=== PATIENT | male | born 1940 | race Caucasian/White ===

== ENCOUNTER 2021-06-07 20:50 | Inpatient (IN) | payer MEDICARE ==
[~2021-06-07] VITALS: Ht 167.6 cm; Wt 67.7 kg
[2021-06-07] MEDS ORDERED: MORPHINE 10 MG/ML 1ML VIAL (J2270) IM ONE (21:40)
[2021-06-07] MEDS ORDERED: BENZONATATE 100MG CAPSULE PO ONE (22:10)
[2021-06-07 22:35] LABS: RSV AMPLIFICATION NEGATIVE (NEGATIVE)
[2021-06-07] MEDS ORDERED: LORazepam 2 MG/ML VIAL IV PRN (23:30)
[2021-06-07] MEDS ORDERED: ATROPINE SULFATE 1% OP SOLN 2 ML BTL SL PRN (23:30)
[2021-06-07] MEDS ORDERED: ONDANSETRON 4MG/2ML VIAL IV PRN (23:30)
[2021-06-07] MEDS ORDERED: BISACODYL 10 MG SUPP PR PRN (23:30)
[2021-06-07] MEDS ORDERED: ONDANSETRON 4 MG ORAL DISINTEGRATING TAB PO PRN (23:30)
[2021-06-07] MEDS ORDERED: ACETAMINOPHEN 650 MG SUPP PR PRN (23:30)
[2021-06-07] MEDS ORDERED: ACETAMINOPHEN TAB 650MG DOSE (2X325MG) PO PRN (23:30)
[2021-06-07] MEDS ORDERED: SCOPOLAMINE 1MG TRANSDERMAL PATCH TOP PRN (23:30)
[2021-06-07] MEDS ORDERED: MORPHINE 2 MG/ML 1ML VIAL (J2270) IV ONE (23:45)
[2021-06-07] MEDS ORDERED: IPRATROPIUM 0.5MG/ALBUTEROL 2.5MG INH SOL UD 3ML (DUONEB) NEB PRN (23:45)
[2021-06-07] MEDS ORDERED: ALBUTEROL SULFATE 2.5 MG/0.5 ML INH NEB SOLN NEB ONE (23:45)
[2021-06-08 00:15] VITALS: BP 132/56
--- NOTE | 2021-06-08 00:30 | HPEPDOC ---
General Date of Admission Jun 07, 2021 at 20:51 Date of Service: Jun 08, 2021 Chief Complaint The patient is a 80-year-old male admitted with a reason for visit of Comfort Measures Only Status, Lung Cancer. Source: Patient Exam Limitations: Clinical conditions History of Present Illness Joaquin Abdalla is a 80-year-old male with significant history CAD, small cell lung cancer, history of GI bleed, and hypertension who presents today with shortness of breath and interest in comfort measures/hospice. Patient seen at bedside and unfortunately in moderate distress describing some chest tightness and "I cannot breathe". He confirms that he is DNR/DNI and interested in breathing treatment and medicines to make him more comfortable. His dyspnea limited HPI and RT was called for breathing treatment and 1 mg morphine IV for air hunger. Patient with improved symptoms after treatment and transferred to the [place] emergency department for further symptom management and to address hospice interest. Patient seen at bedside again with improvement in his dyspnea. He is sitting up in chair with 2 L nasal cannula. He appears unlabored but does grimace with movement of his chest. Patient reports that he is having some moderate pleuritic type chest pain. Endorses soreness with touch to the chest. Patient reports that he is a former smoker and in the past 3 months had some constitutional changes reports losing 30 pounds in 4 weeks and also having some dyspnea on exertion. Patient reports he typically does not have oxygen or inhalers at home. He is in the process from moving from [place] as he s originally from [place]. Patient actually endorses he has been driving back from [place] to include [address]. 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 Patient reports that he was in the process of moving home to be comfortable/obtain house for his when he had an increase in symptoms today. He reports "do not want to be in pain anymore". Patient reports that his doctor gave him "6 weeks to a month as it is very aggressive". MOLST form on chart to confirm DNR/DNI. Patient reports that he has and his is supportive of his choices. He is interested in hospice and does outline he "only wants medication to be comfortable". Home Medications Unable to Obtain Active Prescriptions or Reported Meds Allergies Coded Allergies: No Known Allergies (Verified , 11/16/03) Past Medical History Medical History CAD, small cell lung cancer, history of GI bleed, hypertension, former smoker Surgical History Quadruple bypass, carpal tunnel release 1980, remote herniorrhaphy 1955 Family History Significant Family History: Heart disease Fatherdied at 79 due to open heart surgery, motherdied of old age at 83, brothercardiac stents, no reported health concerns of two children Social History * Smoker: former Smoker Alcohol: Denies Drugs: denies Recent Travel/Sick Contacts: Denies: Recent travel, Recent sick contacts Psychosocial History: No pertinent psych hx A-FIB/CHADSVASC A-FIB History Current/History of A-Fib/PAF?: No Current PO Anticoag Therapy: No Review of Systems Constitutional: Denies: Chills, Fever, Night Sweats Eyes: Denies: Pain, Vision change ENT: Denies: Head Aches, Ear Pain, Dysphagia Skin: Denies: Rash, Lesions, Breakdown Pulmonary: Reports: Dyspnea, Cough, Pleuritic Chest Pain Cardiovascular: Denies: Chest Pain, Palpitations, Orthopnea, Paroxysmal Noc. Dyspnea, Lt Headedness Gastrointestinal: Denies: Nausea, Vomiting, Abdominal Pain, Diarrhea Genitourinary: Denies: Dysuria, Frequency, Incontinence, Retention Hematologic: Denies: Bruising, Bleeding Excessively Musculoskeletal: Denies: Neck Pain, Back Pain, Joint Pain, Muscle Pain, Spasms Neurological: Denies: Weakness, Numbness, Change in speech, Confusion Psych: Reports: Mood Normal; Denies: Depression, Memory Issues Physical Examination General Exam: Positive: Alert, Cooperative, Moderate Distress; Negative: No Acute Distress Eye Exam: Positive: PERRLA, Conjunctiva & lids normal, EOMI; Negative: Sclera icteric ENT Exam: Positive: Atraumatic, Mucous membr. moist/pink, Pharynx Normal Neck Exam: Positive: Supple; Negative: JVD, thyromegaly Chest Exam: Positive: Wheezing, Diminished; Negative: Clear to auscultation, Normal air movement Heart Exam: Positive: Tachycardic, Regular Rhythm, Normal S1, Normal S2; Negative: Rate Normal, Murmurs, Rubs Telemetry: Positive: Sinus, Tachycardia Abdomen Exam: Positive: Normal bowel sounds, Soft; Negative: Tenderness, Hepatospenomegaly Extremity Exam: Positive: Normal pulses; Negative: Clubbing, Cyanosis, Edema Skin Exam: Positive: Nl turgor and temperature; Negative: Breakdown, Lesion Neuro Exam: Positive: Normal Gait, Normal Speech, Cranial Nerves 3-12 NL, Reflexes 2+ Psych Exam: Positive: Mental status NL, Anxiety, Oriented x 3; Negative: Mood NL Vital Signs Vital Signs Date Time Temp Pulse Resp B/P (MAP) Pulse Ox O2 Delivery O2 Flow Rate FiO2 06/08/21 00:06 22 06/07/21 22:16 95 Room Air 06/07/21 21:11 96.7 88 125/85 (98) Laboratory Data Labs 24H Laboratory Tests 2 06/07/21 21:43: Coronavirus (COVID-19)(PCR) NEGATIVE, Influenza Type A (RT-PCR) NEGATIVE, Influenza Type B (RT-PCR) NEGATIVE, Respiratory Syncytial Virus (PCR) NEGATIVE Assessment/Plan CLUB ATTENDANT status: Pt verbalizes interest in no further medical treatment. Wishes to proceed with comfort management interventions only. Interested in hospice. Patient reports that he does not take any pain medication on a regular basis as this has been a recent less than 4 months experience/escalation symptoms for him and thus, opiate crescencio. -Obtain healthcare records from [place] -Plan for CLUB ATTENDANT protocol - morphine, ativan, scopolamine patch prn. -Given patient pleuritic chest pain will trial Toradol for likely costochondritis and probable referred pain; consider fentanyl patch or extended release options pending patient response/amount of immediate release utilized. -Oxygen and breathing treatments as needed for comfort. -Appreciate CM for hospice consult. CODE: DNR/DNI confirmed, MOLST on profile Dispo: Likely will benefit from home hospice Plan / VTE VTE Prophylaxis Ordered?: No (CLUB ATTENDANT) GRANT GARVEY NP Jun 08, 2021 00:12
[2021-06-08] MEDS: LORazepam 1 MG TAB PO PRN ×8 (00:37→23:42)
[2021-06-08] MEDS: MORPHINE 2 MG/ML 1ML VIAL (J2270) IV PRN ×2 (00:38→06:44)
[2021-06-08] MEDS ORDERED: KETOROLAC 30 MG/ML 1ML VIAL IV PRN (01:35)
[2021-06-08] MEDS: MORPHINE 10MG/0.5ML ORAL CONCENTRATE SOLUTION U/D SL PRN ×7 (01:47→23:43)
[2021-06-08] MEDS ORDERED: MORPHINE 15 MG SA TAB PO SCH (09:00)
[2021-06-08] MEDS: SENOKOT S TAB PO SCH ×2 (09:01→20:33)
--- NOTE | 2021-06-08 14:02 | IPNPDOC ---
Subjective Date Seen The patient was seen on 06/08/21. Subjective Chief Complaint/HPI Patient continues to complain of severe left-sided chest pain worse when he is breathing or coughing. He has a Chemo-Port in place. He did say that he had 1 cycle of chemo last week but has decided not to do any further treatment. Objective Physical Examination General Exam: Positive: Alert, Cooperative; Negative: No Acute Distress Eye Exam: Positive: PERRLA, Conjunctiva & lids normal, EOMI; Negative: Sclera icteric ENT Exam: Positive: Atraumatic, Mucous membr. moist/pink, Pharynx Normal Neck Exam: Positive: Supple; Negative: JVD, thyromegaly Chest Exam: Positive: Wheezing, Diminished; Negative: Clear to auscultation, Normal air movement Heart Exam: Positive: Rate Normal, Regular Rhythm, Normal S1, Normal S2; Negative: Murmurs, Rubs Abdomen Exam: Positive: Normal bowel sounds, Soft; Negative: Tenderness Extremity Exam: Negative: Clubbing, Cyanosis, Edema Skin Exam: Positive: Nl turgor and temperature; Negative: Breakdown, Lesion Neuro Exam: Positive: Normal Gait, Normal Speech, Cranial Nerves 3-12 NL, Reflexes 2+ Psych Exam: Positive: Anxiety, Memory Intact, Oriented x 3 Assessment /Plan Assessment 80-year-old male with significant history CAD, metastatic small cell lung c ancer, history of GI bleed, and hypertension presented to the ED for shortness of breath and interested in comfort measures/hospice. Patient is from [place] but has been in [place] for the past several years. His constitutional symptoms of weight loss, dyspnea on exertion, chest pain all big within the past 3 months. In the last couple weeks he received details from his oncologist in [place] where they determined he had metastatic disease from the lung to his lymph nodes, bones and he describes a possible lesion to base of skull. He decided to move back here and pursue INSURANCE SALESMAN/hospice. He reached [place] on 06/06/[address] from [place]. He was in the process of buying a house which has fallen through at this time. He and his are now staying at his daughter's house. He presented to the emergency room because of severe chest pain and difficulty in breathing. Metastatic small cell lung cancer Patient wanted to be INSURANCE SALESMAN. Hospice has been consulted Pain control with the morphine For anxiety will give Ativan. Dyspnea Will give albuterol/ipratropium nebs as needed and morphine for air hunger Plan/VTE VTE Prophylaxis Ordered?: No (INSURANCE SALESMAN) VS, I&O, 24H, Fishbone Vital Signs/I&O Vital Signs Date Time Temp Pulse Resp B/P (MAP) Pulse Ox O2 Delivery O2 Flow Rate FiO2 06/08/21 00:15 97.9 78 20 132/56 (81) 95 Room Air I&O- Last 24 Hours up to 6 AM 06/08/21 06:00 Intake Total 300 ml Output Total 200 ml Balance 100 ml Laboratory Data 24H LABS Laboratory Tests 2 06/07/21 21:43: Coronavirus (COVID-19)(PCR) NEGATIVE, Influenza Type A (RT-PCR) NEGATIVE, Influenza Type B (RT-PCR) NEGATIVE, Respiratory Syncytial Virus (PCR) NEGATIVE Martha Sharif MD Jun 08, 2021 08:17
[2021-06-08] MEDS: MORPHINE 30 MG TAB **MSIR PO PRN ×2 (14:20→22:05)
[2021-06-08] MEDS ORDERED: PILL CUTTER 1 EACH XX PRN (14:20)
[2021-06-08] MEDS: MORPHINE 30 MG SA TAB PO SCH (20:33)
[2021-06-09] MEDS: MORPHINE 30 MG TAB **MSIR PO PRN (02:15)
[2021-06-09] MEDS: LORazepam 1 MG TAB PO PRN (03:58)
[2021-06-09] MEDS: MORPHINE 10MG/0.5ML ORAL CONCENTRATE SOLUTION U/D SL PRN ×3 (03:58→11:41)
[2021-06-09] MEDS: MORPHINE 30 MG SA TAB PO SCH (08:26)
[2021-06-09] MEDS: SENOKOT S TAB PO SCH (08:27)
[2021-06-09] MEDS ORDERED: MORPHINE 10MG/0.5ML ORAL CONCENTRATE SOLUTION U/D SL PRN (13:45)
[2021-06-09] MEDS ORDERED: LORazepam 1 MG TAB PO PRN (13:55)
--- NOTE | 2021-06-09 17:01 | DS.PDOC ---
Discharge Summary General Date of Admission Jun 07, 2021 at 20:51 Date of Discharge 06/09/21 Discharge Summary PROCEDURES PERFORMED DURING STAY: [None]. DISCHARGE DIAGNOSES: Metastatic small cell lung cancer Acute respiratory failure with hypoxia Protein calorie malnutrition CAD HTN COMPLICATIONS/CHIEF COMPLAINT: Comfort Measures Only Status, Lung Cancer. HOSPITAL COURSE:80-year-old male with significant history CAD, metastatic small cell lung cancer, history of GI bleed, and hypertension presented to the ED for shortness of breath and interested in comfort measures/hospice. Patient is from [place] but has been in [place] for the past several years. His constitutional symptoms of weight loss > 30 lbs in 4 weeks, dyspnea on exertion, chest pain all big within the past 3 months. In the last couple weeks he received details from his oncologist in [place] where they determined he had metastatic disease from the lung to his lymph nodes, bones and he describes a possible lesion to base of skull. He decided to move back here and pursue TELETYPIST/hospice. Patient presented to the emergency room for severe chest pain and shortness of breath and was admitted in TELETYPIST status with the intention of consultation with hospice. Patient's pain and anxiety was controlled with morphine and Ativan. Patient became comfortable and pain was controlled. Patient on 06/09/2021 at 16:40 p.m. DISPOSITION: TIME SPENT ON DISCHARGE: 31 minutes. Vital Signs/I&Os Vital Signs Date Time Temp Pulse Resp B/P (MAP) Pulse Ox O2 Delivery O2 Flow Rate FiO2 06/09/21 15:32 20 06/09/21 11:03 4.0 06/08/21 00:15 97.9 78 132/56 (81) 95 Room Air I&O- Last 24 Hours up to 6 AM 06/09/21 06:00 Intake Total 600 ml Output Total 400 ml Balance 200 ml Discharge Medications Unable to Obtain Active Prescriptions or Reported Meds Allergies Coded Allergies: No Known Allergies (Verified , 11/16/03) Martha Sharif MD Jun 09, 2021 17:01
== END 2021-06-09 16:30 | disposition expired | DRG 951 ==
LOC: M ED 20:50 → M ED INP 20:51 → ENRESERV 23:49 → M MSPAV 06-08 00:30 → OBSVTOIN 06-09 08:07 → INTOOBSV 06-09 08:07 → UNDODISIN 06-09 16:40
PROVIDERS: ADMIT Family Medicine; ATTEND Internal Medicine Nephrology
DX: Z51.5 Encounter for palliative care (principal); J96.01 Acute respiratory failure with hypoxia; I26.99 Other pulmonary embolism without acute cor pulmonale; C34.90 Malignant neoplasm of unspecified part of unspecified bronchus or lung; C79.51 Secondary malignant neoplasm of bone; C77.9 Secondary and unspecified malignant neoplasm of lymph node, unspecified; Z66 Do not resuscitate; R07.89 Other chest pain; Z87.891 Personal history of nicotine dependence; I25.10 Atherosclerotic heart disease of native coronary artery without angina pectoris; I10 Essential (primary) hypertension; Z95.1 Presence of aortocoronary bypass graft; Z20.822 Contact with and (suspected) exposure to COVID-19; G89.3 Neoplasm related pain (acute) (chronic); M94.0 Chondrocostal junction syndrome [Tietze]